=== PATIENT | female | born 1950 | race Hispanic/Latino ===

== ENCOUNTER 2017-07-30 11:17 | Outpatient (CLI) | payer MEDICARE, MEDICAID | END 2017-07-30 11:18 | disposition home or self-care (01) | LOC: BICRAD 11:17 | PROVIDERS: ATTEND Family Medicine | DX: M54.2 Cervicalgia (principal); M25.552 Pain in left hip; M54.5 Low back pain; M16.12 Unilateral primary osteoarthritis, left hip; M47.896 Other spondylosis, lumbar region | CPT/HCPCS: 72040; 72100 ==

== ENCOUNTER 2017-08-15 16:51 | Observation (INO) | payer MEDICARE, MEDICAID ==
[2017-08-15 17:59] LABS: #Lymphocytes 1.5 thou/uL (1.20-3.40); #Monocytes 0.3 thou/uL (0.11-0.59); #Neutrophils 11.9 thou/uL (1.40-6.50); %Basophils 0.2 % (0.0-1.0); %Eosinophils 0.3 % (0.0-10.0); %Lymphocytes 11.1 % (21.0-51.0); %Monocytes 1.8 % (0.0-10.0); %Neutrophils 86.6 % (42.0-75.0); Hemoglobin 14.4 g/dL (12.0-16.0); Mean Corpuscular HGB CONC 32.8 g/dL (32.0-36.0); Mean Corpuscular Hemoglobin 28.9 pg (27.0-31.0); Mean Corpuscular Volume 88.1 fl (81.0-99.0); Platelet Count 262 thou/uL (130-400); Red Blood Cell (RBC) Count 4.98 mill/uL (4.20-5.40); White Blood Cell (WBC) Count 13.8 thou/uL (4.8-10.8)
[2017-08-15 18:22] LABS: ALT (SGPT) 22 U/L (8-55); AST (SGOT) 19 U/L (5-34); Alkaline Phosphatase 138 U/L (40-150); Anion Gap 15 mmol/L (10-20); BUN (Urea Nitrogen) 19 mg/dL (9.8-20.1); Bilirubin, Total 0.4 mg/dL (0.2-1.2); CK (CPK) 152 U/L (29-168); Calc. Creatinine Clearance 0 mL/min (70-130); Calcium 10.7 mg/dL (7.8-10.44); Carbon Dioxide 21 mmol/L (23-31); Chloride 102 mmol/L (98-107); Estimated GFR-MDRD 53; Globulin 3.3 g/dL (2.4-3.5); Glucose 200 mg/dL (80-115); Protein, Total 8.3 g/dL (6.0-8.3); Sodium 133 mmol/L (136-145)
[2017-08-15 18:23] LABS: CKMB 2.1 ng/mL (0-6.6); Troponin I Less than 0.010 ng/mL (< 0.028)
--- NOTE | 2017-08-15 20:19 | RAD ---
RADIOGRAPH CHEST 1 VIEW: HISTORY: A 67-year-old female with acute chest pain. FINDINGS: There are no air space densities, pulmonary edema, pneumothorax, or cardiomegaly. The lateral costop hrenic angles are sharp. There is an obliquely oriented thin linear density in the right upper lobe consistent with either scar or subsegmental atelectasis. IMPRESSION: No acute cardiopulmonary findings. nena [r] POS: [facility]
[2017-08-15 21:57] LABS: Troponin I Less than 0.010 ng/mL (< 0.028)
[2017-08-15] MEDS ORDERED: Aspirin 325 MG TAB ONE (22:04)
[2017-08-15] MEDS ORDERED: Nitroglycerin 0.4 MG TAB (25 Tab Bottle) ONE (23:29)
[2017-08-16 01:20] LABS: Troponin I Less than 0.010 ng/mL (< 0.028)
[2017-08-16 02:13] VITALS: BMI 29.0
[2017-08-16] MEDS ORDERED: Acetaminophen 325 MG TAB PO PRN (02:18)
[2017-08-16] MEDS ORDERED: Ondansetron HCl/PF 4 MG/2 ML Vial IVP PRN (02:18)
[2017-08-16] MEDS ORDERED: Ondansetron ODT 4 MG TAB SL PRN (02:18)
[2017-08-16] MEDS ORDERED: Nitroglycerin 0.4 MG TAB (25 Tab Bottle) SL PRN (02:19)
[2017-08-16] MEDS ORDERED: Gabapentin 300 MG CAP PO SCH ×3 (02:30→21:00)
[2017-08-16 04:52] LABS: Troponin I Less than 0.010 ng/mL (< 0.028)
[2017-08-16] MEDS ORDERED: PROVENTIL INHALER 6.7 G (200 INHALATIONS) INH PRN (07:48)
[2017-08-16] MEDS ORDERED: Non-Formulary Item 1 EACH (Omeprazole [Omeprazole] 40 MG) PO SCH (09:00)
[2017-08-16] MEDS ORDERED: Non-Formulary Item 1 EACH (Ipratropium-Albuterol [Combivent] 2 PUFF) INH SCH (09:00)
[2017-08-16] MEDS ORDERED: predniSONE 20 MG TAB PO SCH (09:00)
[2017-08-16 13:13] VITALS: BP 136/62; TEMP 98
--- NOTE | 2017-08-16 14:00 | HP ---
PRIMARY CARE PHYSICIAN: Dr. Tiffanie Travis PRESENTING COMPLAINT: Chest pain. HISTORY OF PRESENT ILLNESS: A 67-year-old female with a history of diastolic heart failure who prese nted to the emergency room with left lower rib pain of a day's duration. The pain worse with inspira tion and movement, relieved by rest. She uses her albuterol with no relief of her symptoms. The juancarlos n does not radiate. It is not associated with diaphoresis, nausea, vomiting or shortness of breath. Denies fevers, chills. She has no abdominal or urinary symptoms. She describes the pain as sharp, stabbing and thinks it is similar to her previous episodes rated 6-7/10 with no aggravating or reliev ing factors. PAST MEDICAL HISTORY: Congestive heart failure, diastolic dysfunction, arthritis, GERD, hypertension , asthma, mild COPD. PAST SURGICAL HISTORY: Tubal reversal at 43, history of tubal ligation. SOCIAL HISTORY: Does not drink alcohol, smoke cigarettes or use illicit drugs. FAMILY HISTORY: Reviewed and noncontributory. ALLERGIES: None. HOME MEDICATIONS: Fluticasone/vilanterol 1 puff inhaled daily, albuterol sulfate 1 puff q.4. p.r.n. for shortness of breath, gabapentin 600 mg at bedtime, ipratropium, Albuterol 2 puffs inhaled q.i.d. , albuterol/ipratropium sulfate 3 mL nebulized q.i.d. p.r.n. for shortness of breath, montelukast 10 mg at bedtime, omeprazole 40 mg daily, prednisone 40 mg daily, spironolactone 25 mg at bedtime. REVIEW OF SYSTEMS: Twelve point review of systems conducted and negative except as stated in HPI. PHYSICAL EXAMINATION: VITAL SIGNS: Temperature 97.9 degrees Fahrenheit, pulse 85, respiratory rate 16, blood pressure 111/ 58. GENERAL: Not in acute distress, sitting comfortably in bed, reports no pain. HEENT: Normocephalic, atraumatic. PERRLA, EOMI, not pale, anicteric with moist mucous membranes. RESPIRATORY: Vesicular breath sounds bilaterally with no wheezes, rales or rhonchi. CARDIOVASCULAR: S1 and S2, only. Regular rate and rhythm. No murmurs, rubs or gallops. No edema. NECK: No JVD. Neck is supple, full range of movement. ABDOMEN: Soft, nontender, nondistended. Bowel sounds positive. No hepatosplenomegaly. MUSCULOSKELETAL: No edema. NEUROLOGIC: Alert and well oriented to time, place and person. No focal deficits. PSYCHIATRIC: Normal mood and affect. SKIN: Warm, dry, well-perfused. No rashes or lesions. MUSCULOSKELETAL: No edema. Full range of movement. Moves extremities spontaneously. LABORATORY DATA: CBC with mild leukocytosis, but otherwise normal. CMP was largely unremarkable. T roponin was trended and was negative. BNP was 10.6. D-dimer was less than 0.27. She had a chest x- ray which showed no acute cardiopulmonary findings. A stress test was ordered and report is pending. ASSESSMENT AND PLAN: 1. Chest pain. This is likely musculoskeletal chest pain as described by patient. Troponin trended and was negative. EKG done showed no signs of acute ischemia, so very unlikely the patient is havin g an episode of acute coronary syndrome. We will follow up the results of her stress test and if it is negative, the patient will be discharged home. 2. Diastolic congestive heart failure. She is not in acute exacerbation. We will continue her home medications. 3. Chronic obstructive pulmonary disease. The patient is doing well on room air, not in acute exace rbation. We will place her on p.r.n. inhalers and resume home medications. 4. Gastroesophageal reflux disease. Continue proton pump inhibitor. CODE STATUS: Full. DVT prophylaxis with subcutaneous heparin.
--- NOTE | 2017-08-16 15:13 | NM ---
NUCLEAR MEDICINE MYOCARDIAL PERFUSION STUDY: Date: 08/16/17 HISTORY: Chest pain. TECHNIQUE: SPECT imaging of the left ventricular myocardium is obtained during rest and stress following the int ravenous administration of 10.0 and 28.0 mCi technetium-99m labeled sestamibi. FINDINGS: No fixed or reversible defect is identified on SPECT imaging of the left ventricular myocardium. TID is 1.0. Left ventricular ejection fraction is calculated at 58%. EDV is 62 mL and ESV is 26 mL. Left ventricular wall motion appears normal. IMPRESSION: No evidence for fixed or reversible defect. Normal left ventricular ejection fraction and wall motion . POS: [facility]
--- NOTE | 2017-08-16 15:43 | DIS ---
DATE OF ADMISSION: 08/16/2017 DATE OF DISCHARGE: 08/16/2017 DISCHARGE DIAGNOSIS: Chest pain. SECONDARY DIAGNOSES: Diastolic congestive heart failure, chronic obstructive pulmonary disease and g astroesophageal reflux disease. HISTORY OF PRESENT ILLNESS/HOSPITAL COURSE: The patient is a 67-year-old female who presented to the hospital with lower left rib chest pain, which is aggravated by inspiration and movement and relieve d by rest. She was seen in the emergency room and the concern was for possible acute coronary syndro me. Troponin was trended and she had a stress test, which was negative. Chest pain, resolved, which is likely musculoskeletal in nature and she was discharged on her home medications. PHYSICAL EXAMINATION: Refer to today's H&P. LABORATORY DATA: Also refer to today's H&P. IMAGING DATA: Chest x-ray. PROCEDURES: Nuclear exercise stress test. CONSULTS: None. CONDITION ON DISCHARGE: Stable and improved. DIET: Cardiac, heart healthy, low salt. ACTIVITY: To resume as tolerated with. CARE GOALS: She is to follow up with her primary care physician within 1 week of discharge. Discharge time 65 minutes including documentation on chart review.
[2017-08-16] MEDS ORDERED: Regadenoson 0.4 MG/5 ML SYRINGE ONE (15:59)
[2017-08-16] MEDS ORDERED: Montelukast Sodium 10 mg Tablet PO SCH (21:00)
[2017-08-16] MEDS ORDERED: Spironolactone 25 MG TAB PO SCH (21:00)
[2017-08-17] MEDS ORDERED: Prevnar 13-Val Conj/PF 0.5 ML SYRINGE IM ONE (09:00)
== END 2017-08-16 15:33 | disposition home or self-care (01) ==
LOC: ERS 16:51 → 2SW 08-16 01:49
PROVIDERS: ADMIT Internal Medicine Infectious Disease; ATTEND Internal Medicine Infectious Disease
DX: R07.9 Chest pain, unspecified (principal); J44.9 Chronic obstructive pulmonary disease, unspecified; K21.9 Gastro-esophageal reflux disease without esophagitis; I11.0 Hypertensive heart disease with heart failure; I50.30 Unspecified diastolic (congestive) heart failure; M19.90 Unspecified osteoarthritis, unspecified site; Z79.51 Long term (current) use of inhaled steroids; Z79.52 Long term (current) use of systemic steroids; Z79.899 Other long term (current) drug therapy
CPT/HCPCS: 71045; 78452; 80053; 82550; 82553 ×2; 83880; 84484 ×4; 85025; 85379; 93005; 93017; 94640 ×2; 99285; A9500; G0378; 36415; A4216; J2785; J7506; J7620

== ENCOUNTER 2017-12-13 10:11 | Outpatient (CLI) | payer MEDICARE, MEDICAID ==
--- NOTE | 2017-12-13 10:31 | RAD ---
2 VIEWS CHEST: Date: 12/13/17 COMPARISON: 08/15/17. HISTORY: Dyspnea. FINDINGS: Two views of the chest show a normal sized cardiomediastinal silhouette. There is no evidence of cons olidation, mass, or pleural effusion. The bones are unremarkable. IMPRESSION: No evidence of acute cardiopulmonary disease. POS: [facility]
== END 2017-12-13 10:12 | disposition home or self-care (01) ==
LOC: RAD 10:11
PROVIDERS: ATTEND Internal Medicine
DX: R06.00 Dyspnea, unspecified (principal)
CPT/HCPCS: 71046

== ENCOUNTER 2018-03-08 13:44 | Outpatient (CLI) | payer MEDICARE, MEDICAID ==
--- NOTE | 2018-03-08 16:09 | ULT ---
LEFT LOWER EXTREMITY VENOUS DUPLEX STUDY: INDICATIONS: Left lower extremity pain and edema. Question Payan's cyst. TECHNIQUE: The deep veins of the left lower extremity are evaluated with color Doppler and spectral analysis wit h compression. FINDINGS: The deep veins of the left lower extremity show normal flow and compression. No evidence of deep hui ous thrombosis. No evidence of a Payan's cyst identified in the popliteal fossa. IMPRESSION: Negative left lower extremity venous duplex examination. POS: [facility]
== END 2018-03-08 13:45 | disposition home or self-care (01) ==
LOC: BICULT 13:44
PROVIDERS: ATTEND Family Medicine
DX: M71.22 Synovial cyst of popliteal space [Baker], left knee (principal)

== ENCOUNTER 2018-04-27 00:20 | Observation (INO) | payer MEDICARE, MEDICAID ==
[2018-04-27 01:10] LABS: #Basophils 0.1 thou/uL (0.0-0.2); #Eosinphils 0.5 thou/uL (0.0-0.7); #Lymphocytes 3.4 thou/uL (1.20-3.40); #Monocytes 0.5 thou/uL (0.11-0.59); #Neutrophils 3.9 thou/uL (1.40-6.50); %Basophils 1.2 % (0.0-1.0); %Eosinophils 5.5 % (0.0-10.0); %Lymphocytes 40.5 % (21.0-51.0); %Monocytes 6.4 % (0.0-10.0); %Neutrophils 46.5 % (42.0-75.0); Hemoglobin 13.2 g/dL (12.0-16.0); Mean Corpuscular Volume 88.4 fL (78.0-98.0); Platelet Count 227 thou/uL (130-400); RBC Distribution Width 12.4 % (11.5-14.5); Red Blood Cell (RBC) Count 4.41 mill/uL (4.20-5.40); White Blood Cell (WBC) Count 8.5 thou/uL (4.8-10.8)
[2018-04-27] MEDS ORDERED: Ondansetron PF 4 MG/2 ML Vial ONE (01:17)
[2018-04-27] MEDS ORDERED: Lidocaine Viscous Sol 2% 15 ml UD Cup ONE (01:17)
[2018-04-27] MEDS ORDERED: Mag-Al 1200 mg/1200 mg/30 ML UDCUP ONE (01:17)
[2018-04-27 01:31] LABS: ALT (SGPT) 16 U/L (8-55); AST (SGOT) 16 U/L (5-34); Albumin 4.1 g/dL (3.4-4.8); Alkaline Phosphatase 131 U/L (40-150); Anion Gap 8 mmol/L (10-20); BUN (Urea Nitrogen) 18 mg/dL (9.8-20.1); Bilirubin, Total 0.3 mg/dL (0.2-1.2); CK (CPK) 108 U/L (29-168); Calc. Creatinine Clearance 0 mL/min (70-130); Calcium 9.5 mg/dL (7.8-10.44); Carbon Dioxide 24 mmol/L (23-31); Chloride 109 mmol/L (98-107); Estimated GFR-MDRD 74; Globulin 2.6 g/dL (2.4-3.5); Glucose 145 mg/dL (80-115); Lipase 17 U/L (8-78); Potassium 3.8 mmol/L (3.5-5.1); Protein, Total 6.7 g/dL (6.0-8.3); Sodium 137 mmol/L (136-145)
[2018-04-27 01:43] LABS: CKMB 1.5 ng/mL (0-6.6); Troponin I Less than 0.010 ng/mL (< 0.028)
[2018-04-27 04:18] VITALS: BMI 28.5
[2018-04-27 04:24] LABS: Troponin I Less than 0.010 ng/mL (< 0.028)
[2018-04-27] MEDS ORDERED: Sodium Chloride 0.9% 1,000 ML IV SCH (04:28)
[2018-04-27] MEDS ORDERED: Acetaminophen 325 MG TAB PO PRN (04:28)
[2018-04-27] MEDS ORDERED: Ondansetron ODT 4 MG TAB SL PRN (04:28)
[2018-04-27] MEDS ORDERED: Ondansetron PF 4 MG/2 ML Vial IVP PRN (04:28)
[2018-04-27 06:09] LABS: Troponin I Less than 0.010 ng/mL (< 0.028)
[2018-04-27] MEDS ORDERED: Gabapentin 300 MG CAP PO PRN (08:32)
[2018-04-27] MEDS ORDERED: Aspirin 325 mg Enteric Coated Tablet PO SCH (09:00)
[2018-04-27] MEDS ORDERED: Pantoprazole 40 MG VIAL IVP SCH (09:00)
[2018-04-27] MEDS ORDERED: Non-Formulary Item 1 EACH (Fluticasone/Vilanterol [Breo Ellipta 200-25 Mcg Inh] 1 PUFF) INH SCH (09:00)
--- NOTE | 2018-04-27 09:00 | RAD ---
CHEST 1 VIEW: Date: 04/27/18 INDICATION: Substernal chest pain. COMPARISON: Prior exam dated 12/13/17. IMPRESSION: No consolidation, pleural effusion, or pneumothorax is evident. Heart size is normal appearing. [place] us structures are unchanged. Mild scarring within the right upper lobe is stable. POS: [facility]
[2018-04-27 15:53] VITALS: BP 107/60; TEMP 97.8
--- NOTE | 2018-04-27 19:22 | CON ---
DATE OF CONSULTATION: 04/27/2018 HISTORY OF PRESENT ILLNESS: The patient is a 67-year-old female who was in her normal state of health until the day of admission when she developed fairly significant chest pain. She describes this like a pressure type pain, like a squeezing like pain. It did not radiate. She did have some nausea without vomiting. She has a diagnosis of gastroesophageal reflux and takes omeprazole for this; however, she had not been taking it several days prior to this episode. She got a GI cocktail in the emergency room and that relieved her pain. She has not had prior endoscopy. There was some question of change in bowel function, which she attributes to her vitamin. She said in the past she stopped her vitamins and that has stopped the change in bowel function. PAST MEDICAL HISTORY: Significant for asthma, hyperlipidemia, gastroesophageal reflux disease. PAST SURGICAL HISTORY: Includes tubal ligation and subsequent reversal. ALLERGIES: NO KNOWN MEDICAL ALLERGIES. MEDICATIONS: Include; 1. Spironolactone 25 mg p.o. daily. 2. Pravastatin 40 mg p.o. q.p.m. 3. Omeprazole 40 mg oral once daily which she takes intermittently. 4. She is on multiple inhalers for asthma. FAMILY HISTORY: Negative for GI or liver disease. SOCIAL HISTORY: She does not smoke or drink. REVIEW OF SYSTEMS: CONSTITUTIONAL: Fever, chills. No weight loss. EYES: No blurred vision or double vision. ENT: No sore throat or earaches. CARDIOVASCULAR: Positive for chest pain. No palpitations. GI: See above. : No hematuria or dysuria. MUSCULOSKELETAL: No joint pain or muscle weakness. SKIN: No rashes. NEUROLOGIC: No numbness or seizure activity. PHYSICAL EXAMINATION: GENERAL: Shows a well-developed, well-nourished, female, in no acute distress. VITAL SIGNS: Temperature 97.9, pulse 71, respiratory rate 16, blood pressure 122/69. HEENT: Unremarkable. NECK: Supple. CHEST: Clear. CARDIOVASCULAR: Regular rate and rhythm without murmurs, gallops. ABDOMEN: Soft, nontender without organomegaly or masses. Bowel sounds are present, normoactive. LABORATORY DATA: The patient has normal CBC, normal D-dimer, normal chemistry panel except for a glucose of 145. ASSESSMENT: 1. Chest pain - suspect secondary to reflux. 2. Change in bowel function - secondary to vitamins. RECOMMENDATIONS: 1. Continue omeprazole and use on a daily basis. 2. Follow up as an outpatient. 3. Discontinue vitamins. Job ID: [id number]
[2018-04-27] MEDS ORDERED: Spironolactone 25 MG TAB PO SCH (21:00)
[2018-04-27] MEDS ORDERED: Montelukast Sodium 10 mg Tablet PO SCH (21:00)
== END 2018-04-27 17:57 | disposition home or self-care (01) ==
LOC: ERS 00:20 → 2SW 04:03
PROVIDERS: ADMIT Internal Medicine; ATTEND Internal Medicine
DX: R07.9 Chest pain, unspecified (principal); R19.4 Change in bowel habit; J45.909 Unspecified asthma, uncomplicated; E78.5 Hyperlipidemia, unspecified; K21.9 Gastro-esophageal reflux disease without esophagitis; Z79.899 Other long term (current) drug therapy
CPT/HCPCS: 71045; 80053; 82550; 82553; 83690; 83880; 84484 ×2; 85025; 85379; 93005; 94640 ×2; 94760; 96361; 96374; 96375; 99285; G0378 ×2; 36415; 36416; C9113; J2405; J7620

== ENCOUNTER 2018-06-20 13:57 | Outpatient (CLI) | payer MEDICARE, MEDICAID ==
--- NOTE | 2018-06-20 14:33 | RAD ---
THREE VIEWS LEFT SHOULDER: History: Increasing pain. FINDINGS: AP internally, externally and scapular Y views left shoulder obtained. There is no evidence of left shoulder fractures, subluxations, or bony lesions. IMPRESSION: Normal three views left shoulder. POS: [facility]
== END 2018-06-20 13:58 | disposition home or self-care (01) ==
LOC: BICRAD 13:57
PROVIDERS: ATTEND Family Medicine
DX: M25.512 Pain in left shoulder (principal)

== ENCOUNTER 2018-10-22 08:03 | Outpatient (CLI) | payer MEDICARE, MEDICAID ==
--- NOTE | 2018-10-22 08:48 | MMO ---
Bilateral MAMMO Bilat Screen [facility]. CLINICAL HISTORY: Patient is 68 years old and is seen for screening. The patient has the following family history of breast cancer: maternal aunt. The patient has no personal history of cancer. VIEWS: The views performed were: bilateral craniocaudal with tomosynthesis and bilateral mediolateral oblique with tomosynthesis. MAMMOGRAM FINDINGS: There are scattered fibroglandular densities. There are no suspicious masses, suspicious calcifications, or new areas of architectural distortion. IMPRESSION: THERE IS NO MAMMOGRAPHIC EVIDENCE OF MALIGNANCY. A ROUTINE FOLLOW-UP MAMMOGRAM IN 1 YEAR IS RECOMMENDED. THE RESULTS OF THIS EXAM WERE SENT TO THE PATIENT. ACR BI-RADS Category 1 - Negative MAMMOGRAPHY NOTE: 1. A negative mammogram report should not delay a biopsy if a dominant of clinically suspicious mass is present. 2. Approximately 10% to 15% of breast cancers are not detected by mammography. 3. Adenosis and dense breasts may obscure an underlying neoplasm.
== END 2018-10-22 08:04 | disposition home or self-care (01) ==
LOC: BICMAMMO 08:03
PROVIDERS: ATTEND Family Medicine
DX: Z12.31 Encounter for screening mammogram for malignant neoplasm of breast (principal); Z80.3 Family history of malignant neoplasm of breast
CPT/HCPCS: 77063; 77067

== ENCOUNTER 2019-03-27 13:00 | Outpatient (CLI) | payer MEDICARE, MEDICAID ==
--- NOTE | 2019-03-27 13:37 | RAD ---
EXAM: Two views chest PROVIDED CLINICAL HISTORY: Dyspnea COMPARISON: 12/13/2017 FINDINGS: Cardiac silhouette and pulmonary vasculature are within normal limits. There is stable mild symmetri c biapical pleural and parenchymal scarring. There is also stable linear scarring in the right upper lung zone. The lungs are otherwise clear. The osseous structures have a normal appearance. IMPRESSION: Stable mild chronic lung changes without evidence of an acute cardiopulmonary process.
== END 2019-03-27 13:01 | disposition home or self-care (01) ==
LOC: RAD 13:00
PROVIDERS: ATTEND Internal Medicine
DX: R06.00 Dyspnea, unspecified (principal)
CPT/HCPCS: 71046

== ENCOUNTER 2019-07-17 14:51 | Outpatient (CLI) | payer MEDICARE, MEDICAID ==
--- NOTE | 2019-07-17 15:49 | BD ---
Exam: DEXA Bone Density 07/17/19 HISTORY: Postmenopausal. Lumbar Spine: BMD (g/cm2) T-SCORE L1 0.811 -1.6 L2 0.760 -2.4 L3 0.791 -2.7 L4 0.771 -2.6 L1-L4 0.783 -2.4 Left Femoral Neck: 0.557 -2.6 Total Femur: 0.769 -1.4 Impression: Osteopenia of the lumbar spine. Value is border on the osteoporosis range and osteoporosis of the lef t femoral neck. POS: [facility]
== END 2019-07-17 14:52 | disposition home or self-care (01) ==
LOC: BICMAMMO 14:51
PROVIDERS: ATTEND Family Medicine
DX: Z13.820 Encounter for screening for osteoporosis (principal); M81.0 Age-related osteoporosis without current pathological fracture; M85.88 Other specified disorders of bone density and structure, other site
CPT/HCPCS: 77080

== ENCOUNTER 2020-07-07 12:53 | Outpatient (CLI) | payer MEDICARE, MEDICAID ==
--- NOTE | 2020-07-07 13:31 | MMO ---
Bilateral MAMMO Bilat Screen [facility]. CLINICAL HISTORY: Patient is 69 years old and is seen for screening. The patient has the following family history of breast cancer: maternal aunt. The patient has no personal history of cancer. VIEWS: The views performed were: bilateral craniocaudal with tomosynthesis and bilateral mediolateral oblique with tomosynthesis. FILMS COMPARED: The present examination has been compared to a prior imaging study performed at [facility] on 10/22/2018. This study has been interpreted with the assistance of computer-aided detection. MAMMOGRAM FINDINGS: There are scattered fibroglandular densities. There are no suspicious masses, suspicious calcifications, or new areas of architectural distortion. IMPRESSION: THERE IS NO MAMMOGRAPHIC EVIDENCE OF MALIGNANCY. A ROUTINE FOLLOW-UP MAMMOGRAM IN 1 YEAR IS RECOMMENDED. THE RESULTS OF THIS EXAM WERE SENT TO THE PATIENT. ACR BI-RADS Category 1 - Negative MAMMOGRAPHY NOTE: 1. A negative mammogram report should not delay a biopsy if a dominant of clinically suspicious mass is present. 2. Approximately 10% to 15% of breast cancers are not detected by mammography. 3. Adenosis and dense breasts may obscure an underlying neoplasm. Reported by: ALIYA RINCON MD Electonically Signed: [id number]
== END 2020-07-07 12:54 | disposition home or self-care (01) ==
LOC: BICMAMMO 12:53
PROVIDERS: ATTEND Family Medicine
DX: Z12.31 Encounter for screening mammogram for malignant neoplasm of breast (principal); Z80.3 Family history of malignant neoplasm of breast
CPT/HCPCS: 77063; 77067

== ENCOUNTER 2020-10-04 08:39 | Outpatient (CLI) | payer MEDICARE, MEDICAID | END 2020-10-04 08:40 | disposition home or self-care (01) | LOC: BICRAD 08:39 | PROVIDERS: ATTEND Internal Medicine Critical Care Medicine | DX: R06.00 Dyspnea, unspecified (principal) | CPT/HCPCS: 71046 ==

== ENCOUNTER 2021-03-10 10:45 | Outpatient (CLI) | payer MEDICARE, MEDICAID | END 2021-03-10 10:46 | disposition home or self-care (01) | LOC: BICRAD 10:45 | PROVIDERS: ATTEND Family Medicine | DX: M79.671 Pain in right foot (principal); M51.36 Other intervertebral disc degeneration, lumbar region; M18.11 Unilateral primary osteoarthritis of first carpometacarpal joint, right hand ==

== ENCOUNTER 2021-03-29 14:48 | Outpatient (CLI) | payer MEDICARE, MEDICAID | END 2021-03-29 14:49 | disposition home or self-care (01) | LOC: BICMRI 14:48 | PROVIDERS: ATTEND Family Medicine | DX: M47.26 Other spondylosis with radiculopathy, lumbar region (principal); M47.815 Spondylosis without myelopathy or radiculopathy, thoracolumbar region | CPT/HCPCS: 72148 ==

== ENCOUNTER 2021-03-31 08:33 | Outpatient (CLI) | payer MEDICARE, MEDICAID | END 2021-03-31 08:34 | disposition home or self-care (01) | LOC: RAD 08:33 | PROVIDERS: ATTEND Internal Medicine Critical Care Medicine | DX: R06.00 Dyspnea, unspecified (principal) | CPT/HCPCS: 71046 ==

== ENCOUNTER 2021-03-31 12:44 | Outpatient (CLI) | payer MEDICARE, MEDICAID | END 2021-03-31 12:45 | disposition home or self-care (01) | LOC: BICCT 12:44 | PROVIDERS: ATTEND Surgery | DX: R22.0 Localized swelling, mass and lump, head (principal); M89.9 Disorder of bone, unspecified; R06.00 Dyspnea, unspecified | CPT/HCPCS: 70470; 71046; 82565 ==

== ENCOUNTER 2021-10-31 13:21 | Outpatient (CLI) | payer MEDICARE, MEDICAID | END 2021-10-31 13:22 | disposition home or self-care (01) | LOC: TBSIIMAG 13:21 | PROVIDERS: ATTEND Surgery | DX: M89.9 Disorder of bone, unspecified (principal); I67.82 Cerebral ischemia | CPT/HCPCS: 70553; 82565 ==

== ENCOUNTER 2021-11-07 13:50 | Outpatient (CLI) | payer MEDICARE, MEDICAID ==
[2021-11-07 15:51] LABS: Hemoglobin 13.4 g/dL (12.0-15.5); Mean Corpuscular HGB CONC 32.4 g/dL (32.0-36.0); Mean Corpuscular Hemoglobin 28.9 pg (27.0-33.0); Mean Corpuscular Volume 89.2 fl (81.6-98.3); Mean Platelet Volume 12.9 fl (7.4-10.4); Platelet Count 236 10x3/uL (150-450); RBC Distribution Width 13.8 % (11.5-14.5); Red Blood Cell (RBC) Count 4.63 10x6/uL (3.90-5.03); White Blood Cell (WBC) Count 7.1 10x3/uL (3.5-10.5)
[2021-11-07 16:28] LABS: INR-International Normal Ratio 0.9; PTT 28.4 sec (22.0-33.0)
[2021-11-07 16:31] LABS: Anion Gap 13 mmol/L (10-20); BUN (Urea Nitrogen) 17 mg/dL (9.8-20.1); Calc. Creatinine Clearance 0 mL/min (70-130); Calcium 9.8 mg/dL (7.8-10.44); Carbon Dioxide 24 mmol/L (23-31); Chloride 106 mmol/L (98-107); Glucose 100 mg/dL (83-110); Potassium 4.4 mmol/L (3.5-5.1); Sodium 139 mmol/L (136-145)
== END 2021-11-07 13:51 | disposition home or self-care (01) ==
LOC: LABBT 13:50
PROVIDERS: ATTEND Surgery
DX: Z01.818 Encounter for other preprocedural examination (principal); M89.9 Disorder of bone, unspecified; Z20.822 Contact with and (suspected) exposure to COVID-19
CPT/HCPCS: 80048; 85027; 85610; 85730; 93005; U0003; U0005; 93010

== ENCOUNTER 2021-11-07 14:00 | Inpatient (IN) | payer MEDICARE, MEDICAID ==
[2021-11-10] MEDS ORDERED: Bacitracin Zinc Ointment 30 gm TUBE ONE (06:33)
[2021-11-10] MEDS ORDERED: Lidocaine 0.5%/Epinephrine 1:200,000 50 ml Vial ONE (06:33)
[2021-11-10] MEDS ORDERED: Lidocaine 1% w/Epinephrine 1:100K 30 ML VIAL ONE (06:33)
[2021-11-10] MEDS ORDERED: fentaNYL Citrate/PF 100 MCG/2 ML SYRINGE ONE (07:12)
[2021-11-10] MEDS ORDERED: CEFAZOLIN 2 GM VIAL ONE (07:23)
[2021-11-10] MEDS ORDERED: Sodium Chloride 0.9% 100 ML ONE (07:23)
[2021-11-10] MEDS ORDERED: Lidocaine 1% PF 5 ML VIAL ONE (07:43)
[2021-11-10] MEDS ORDERED: Rocuronium Bromide 10 MG/ML (10ML VIAL) ONE ×2 (07:43)
[2021-11-10] MEDS ORDERED: Ondansetron PF 4 MG/2 ML Vial ONE (07:43)
[2021-11-10] MEDS ORDERED: ePHEDrine 50 MG/ML VIAL ONE (07:43)
[2021-11-10] MEDS ORDERED: Glycopyrrolate 0.2 MG/ML 5 ML SYRINGE ONE (07:43)
[2021-11-10] MEDS ORDERED: PROPOFOL 200 MG/20 ML VIAL ONE (07:43)
[2021-11-10] MEDS ORDERED: PHENYLEPHRINE-NS 100 MCG/ML 10 ML SYRINGE ONE (07:43)
[2021-11-10] MEDS ORDERED: Dexamethasone 20 MG/5 ML VIAL ONE (07:43)
[2021-11-10] MEDS ORDERED: Ketorolac Tromethamine 30 MG/ML VIAL ONE (07:43)
[2021-11-10] MEDS ORDERED: HYDROcodone/Acetaminophen 7.5/325 mg Tablet PO PRN (09:21)
[2021-11-10] MEDS ORDERED: hydrALAZINE 20 MG/ML VIAL SLOW IVP PRN (09:23)
[2021-11-10] MEDS ORDERED: Acetaminophen 325 MG TAB PO PRN (09:23)
[2021-11-10] MEDS ORDERED: Ondansetron PF 4 MG/2 ML Vial IVP PRN (09:23)
[2021-11-10] MEDS ORDERED: Morphine 2 MG/ML VIAL SLOW IVP PRN (09:23)
[2021-11-10] MEDS ORDERED: traMADol HCl 50 MG TAB PO PRN (09:26)
[2021-11-10] MEDS ORDERED: IPRATROPIUM ALBUTEROL INH PRN (09:26)
[2021-11-10] MEDS ORDERED: Promethazine HCl 25 MG/ML VIAL IM PRN (09:29)
[2021-11-10] MEDS ORDERED: Ondansetron HCl/PF 4 MG/2 ML Vial IVP PRN (09:29)
[2021-11-10] MEDS ORDERED: Promethazine HCl 25 MG/ML VIAL IVPB PRN (09:29)
[2021-11-10] MEDS ORDERED: HYDROmorphone 2 MG/ML VIAL SLOW IVP PRN (09:29)
[2021-11-10] MEDS ORDERED: diphenhydrAMINE 25 MG CAP PO PRN (10:28)
[2021-11-10] MEDS: Sodium Chloride 0.9% 1,000 ML IV SCH ×2 (14:33→22:08)
[2021-11-10] MEDS: Acetaminophen/Codeine 30-300mg Tablet PO PRN ×3 (14:34→22:07)
[2021-11-10] MEDS: CEFAZOLIN 2 GM in Sodium Chloride 0.9% 100 ML IVPB SCH ×2 (15:15→23:41)
[2021-11-11] MEDS: Mometasone/Formoterol 200/5 60 PUFF INH SCH ×2 (01:45→07:36)
[2021-11-11] MEDS: Sodium Chloride 0.9% 1,000 ML IV SCH ×3 (05:15→05:16)
[2021-11-11] MEDS: CEFAZOLIN 2 GM in Sodium Chloride 0.9% 100 ML IVPB SCH (08:33)
[2021-11-11] MEDS: Acetaminophen/Codeine 30-300mg Tablet PO PRN ×2 (08:33→12:32)
[2021-11-11 11:47] VITALS: BP 126/65; TEMP 98.2
[2021-11-11] MEDS ORDERED: Atorvastatin Calcium 10 MG TAB PO SCH (21:00)
== END 2021-11-11 13:34 | disposition home or self-care (01) | DRG 479 ==
LOC: SURG A 11-10 05:49
PROVIDERS: ADMIT Surgery; ATTEND Surgery
PROC: 0NB Head and Facial Bones, Excision (ICD-10-PCS; principal; 2021-11-10)
DX: D16.4 Benign neoplasm of bones of skull and face (principal); M89.9 Disorder of bone, unspecified; Z20.822 Contact with and (suspected) exposure to COVID-19; Z88.8 Allergy status to other drugs, medicaments and biological substances
CPT/HCPCS: 80048; 85027; 85610; 85730; 88307; 88311; 93005; 93010; 94640; J0690; J2001; J3490; J7050; J7620; U0003; U0005

== ENCOUNTER 2022-09-12 14:33 | Outpatient (CLI) | payer MEDICARE, MEDICAID | END 2022-09-12 14:34 | disposition home or self-care (01) | LOC: RAD 14:33 | PROVIDERS: ATTEND Internal Medicine Critical Care Medicine | DX: R06.00 Dyspnea, unspecified (principal) | CPT/HCPCS: 71046 ==

== ENCOUNTER 2023-01-24 09:33 | Outpatient (CLI) | payer MEDICARE, MEDICAID | END 2023-01-24 09:34 | disposition home or self-care (01) | LOC: BICMAMMO 09:33 | PROVIDERS: ATTEND Family Medicine | DX: Z12.31 Encounter for screening mammogram for malignant neoplasm of breast (principal); R92.1 Mammographic calcification found on diagnostic imaging of breast; Z80.3 Family history of malignant neoplasm of breast | CPT/HCPCS: 77063; 77067 ==

== ENCOUNTER 2023-01-26 08:39 | Outpatient (CLI) | payer MEDICARE, MEDICAID | END 2023-01-26 08:40 | disposition home or self-care (01) | LOC: BICMAMMO 08:39 | PROVIDERS: ATTEND Family Medicine | DX: R92.1 Mammographic calcification found on diagnostic imaging of breast (principal) | CPT/HCPCS: 77065; G0279 ==

== ENCOUNTER 2023-04-27 09:13 | Outpatient (CLI) | payer MEDICARE, MEDICAID | END 2023-04-27 09:14 | disposition home or self-care (01) | LOC: RAD 09:13 | PROVIDERS: ATTEND Internal Medicine Critical Care Medicine | DX: R06.00 Dyspnea, unspecified (principal); J98.11 Atelectasis; R91.8 Other nonspecific abnormal finding of lung field | CPT/HCPCS: 71046 ==

== ENCOUNTER 2024-03-12 13:26 | Outpatient (CLI) | payer MEDICARE, MEDICAID | END 2024-03-12 13:27 | disposition home or self-care (01) | LOC: BICMAMMO 13:26 | PROVIDERS: ATTEND Family Medicine | DX: R92.8 Other abnormal and inconclusive findings on diagnostic imaging of breast (principal) | CPT/HCPCS: 77066; G0279 ==

== ENCOUNTER 2024-11-26 08:18 | Outpatient (CLI) | payer MEDICARE, MEDICAID | END 2024-11-26 08:19 | disposition home or self-care (01) | LOC: BICMAMMO 08:18 | PROVIDERS: ATTEND Family Medicine | DX: M81.0 Age-related osteoporosis without current pathological fracture (principal) | CPT/HCPCS: 77080 ==

== ENCOUNTER 2025-03-19 13:11 | Emergency (ER) | payer MEDICARE, MEDICAID ==
[2025-03-19] MEDS ORDERED: Ketorolac Tromethamine 30 MG (1 mL) VIAL ONE (15:02)
[2025-03-19] MEDS ORDERED: Acetaminophen 325 MG TAB ONE (15:02)
[2025-03-19 15:13] LABS: #Basophils 0.05 10x3/uL (0.0-0.2); #Eosinophils 0.40 10x3/uL (0.0-0.7); #Monocytes 0.46 10x3/uL (0.11-0.59); #Neutrophils 3.81 10x3/uL (1.40-6.50); %Basophils 0.7 % (0.0-1.0); %Eosinophils 5.5 % (0.0-10.0); %Lymphocytes 35.1 % (21.0-51.0); %Monocytes 6.3 % (0.0-10.0); %Neutrophils 52.1 % (42.0-75.0); Hematocrit 38.3 % (36.0-47.0); Hemoglobin 12.6 g/dL (12.0-16.0); Mean Corpuscular Hemoglobin 28.3 pg (27.0-31.0); Mean Corpuscular Volume 85.9 fL (78.0-98.0); Platelet Count 203 10x3/uL (130-400); Red Blood Cell (RBC) Count 4.46 mill/uL (4.20-5.40); White Blood Cell (WBC) Count 7.30 10x3/uL (4.8-10.8)
[2025-03-19 15:31] LABS: ALT (SGPT) 15 U/L (Less than 34); AST (SGOT) 20 U/L (11-34); Albumin 4.1 g/dL (3.1-4.5); Alkaline Phosphatase 90 U/L (40-110); Anion Gap 10 mmol/L (10-20); BUN (Urea Nitrogen) 13 mg/dL (9.8-20.1); Bilirubin, Total 0.5 mg/dL (0.3-1.2); Calc. Creatinine Clearance 0 mL/min (70-130); Calcium 9.4 mg/dL (7.8-10.44); Carbon Dioxide 25 mmol/L (23-31); Chloride 107 mmol/L (98-107); Globulin 2.7 g/dL (2.4-3.5); Glucose 87 mg/dL (83-110); Lipase 16 U/L (8-78); Potassium 4.1 mmol/L (3.5-5.1); Sodium 138 mmol/L (136-145)
== END 2025-03-19 16:31 | disposition home or self-care (01) ==
LOC: ERS 13:11
DX: R07.9 Chest pain, unspecified (principal); M54.12 Radiculopathy, cervical region; M54.14 Radiculopathy, thoracic region; I11.0 Hypertensive heart disease with heart failure; I50.9 Heart failure, unspecified; K21.9 Gastro-esophageal reflux disease without esophagitis; J44.9 Chronic obstructive pulmonary disease, unspecified; I25.2 Old myocardial infarction; Z79.51 Long term (current) use of inhaled steroids
CPT/HCPCS: 71045; 80053; 83690; 84484; 85025; 93005; 94760; J1885; 96374